=== PATIENT | male | born 1950 | race Caucasian/White ===

== ENCOUNTER 2018-04-11 13:36 | Outpatient (CLI) | payer MEDICARE, BC | END 2018-04-11 13:37 | disposition home or self-care (01) | LOC: BICULT 13:36 | PROVIDERS: ATTEND Internal Medicine Geriatric Medicine | DX: R53.1 Weakness (principal); R42 Dizziness and giddiness; R53.83 Other fatigue; R55 Syncope and collapse | CPT/HCPCS: 93880 ==

== ENCOUNTER 2019-03-25 11:24 | Outpatient (CLI) | payer MEDICARE, BC ==
--- NOTE | 2019-03-25 13:18 | RAD ---
LUMBAR SPINE: 03/24/19 Three views. Lateral views obtained in neutral, flexion and extension. INDICATIONS: Low back pain. There are mild to moderate degenerative changes. Disc narrowing seen at T12-L1 and L1-2. Loss of disc space at L5-S1. Mild to moderate spurring from anterior lumbar vertebrae. Moderate facet hypertrophy at L4-5 and L5-S1. There is a grade I anterolisthesis at L4-5 measured at 6 to 7 mm in neutral position. This measures 1 1 mm in flexion. IMPRESSION: Degenerative changes in the lumbar spine with anterolisthesis of L4-5 as described. POS: OFF
== END 2019-03-25 11:25 | disposition home or self-care (01) ==
LOC: TBSIIMAG 11:24
PROVIDERS: ATTEND Neurological Surgery
DX: M54.5 Low back pain (principal); M43.16 Spondylolisthesis, lumbar region; M47.816 Spondylosis without myelopathy or radiculopathy, lumbar region
CPT/HCPCS: 72100

== ENCOUNTER 2019-06-12 08:30 | Inpatient (IN) | payer MEDICARE, BC ==
--- NOTE | 2019-06-15 09:10 | HP ---
HISTORY OF PRESENT ILLNESS: This is a 68-year-old male, who reports to our office for evaluation of right-sided axial low back pain. The patient states that he has had pain for years, however, the last 6 months has progressively worse. The patient is worse when standing, a little better when sitting, but the best position is when he is in his recliner. The patient has seen different surgeon and wants to fuse his spine. The patient states he has been through physical therapy for approximately 6 weeks without much benefit. He has had injections with good results, but only for 2 hours. The patient is tender over the right SI joint. No change in sensation, has good strength bilaterally. REVIEW OF SYSTEMS: A 10-point review of systems has been completed and is negative other than stated above HPI. PAST MEDICAL HISTORY: Sleep apnea, hyperlipidemia, and claustrophobic. PAST SURGICAL HISTORY: Removal of a cyst on right wrist; ACL, left knee; torn rotator cuff repair; ganglion cyst removed on right thumb; torn meniscus repair; bilateral scopes; and a cyst removed on the left palm. FAMILY HISTORY: Father is , diagnosed with diabetes, hypertension, heart disease, stroke, and cancer. Mother alive, diagnosed with arthritis, osteoporosis, prediabetic, low blood count, diagnosed with hypertension. SOCIAL HISTORY: The patient is a nonsmoker. Uses alcohol on occasion and denies illicit drug. Lives with spouse. MEDICATIONS: 1. Centrum Silver. 2. Ocuvite. 3. Melatonin. 4. Aspirin 81 mg. 5. Pravastatin. 6. Fenofibrate. ALLERGIES: BACTRIM, DICLOFENAC, AND AUGMENTIN. PHYSICAL EXAMINATION: CONSTITUTIONAL: Well appearing, well nourished, alert. NEUROLOGIC: Awake, alert, and oriented x3. Cranial nerves are grossly intact. Lower extremities, 5/5 bilateral strength, hip flexion, knee flexion, knee extension, dorsiflexion, plantar flexion, EHL. There is no radiculopathy. Negative single leg raise bilaterally. Hip rotation normal bilaterally. Tender to palpate lumbar spine and right SI joint. Deep tendon reflexes 2+ patellar, 2+ Achilles bilaterally. Negative Babinski. No clonus. Sensory light touch intact. Gait and station, sit and stand normal. Normal gait. IMAGING STUDIES: MRI of L3-L4 lateral recess foraminal disease, moderate left L5-S1 foraminal narrowing. L4-L5 stenosis from listhesis, flexion-extension x-rays 3-mm motion at L4-L5 ASSESSMENT AND PLAN: Lumbar spinal stenosis and spondylolisthesis. Dr. Milligan has offered surgery, laminectomy, decompression L3-L4, L4-L5, L5-S1 with that transforaminal lumbar interbody fusion at L4-L5 for his instability. The patient states that he understands his risks and is willing to proceed. Job ID: [id number]
[2019-06-16] MEDS ORDERED: Clindamycin/D5W 900 mg/50 ml Premix Bag ONE (06:13)
[2019-06-16] MEDS ORDERED: Levofloxacin 500 mg/D5W 100 ml Premix Bag ONE (06:13)
[2019-06-16] MEDS ORDERED: Bupivacaine HCl 0.5%/Epinephrine 1:200,000/PF 30 ml Vial ONE (06:16)
[2019-06-16] MEDS ORDERED: Sodium Chloride 0.9% 30 ML ONE (06:17)
[2019-06-16] MEDS ORDERED: Thrombin 5000 UNITS/5 ML VIAL ONE (06:17)
[2019-06-16] MEDS ORDERED: Midazolam HCl 2 mg/2 ml Vial ONE (06:49)
[2019-06-16] MEDS ORDERED: Fentanyl 100 MCG/2 ML VIAL ONE ×4 (06:51→14:44)
[2019-06-16] MEDS ORDERED: Acetaminophen 650 MG Suppository PR PRN (12:17)
[2019-06-16] MEDS ORDERED: Milk Of Magnesia 30 ML UDCUP PO PRN (12:17)
[2019-06-16] MEDS ORDERED: Promethazine HCl 25 MG/ML VIAL IM PRN ×2 (12:17→12:41)
[2019-06-16] MEDS ORDERED: diphenhydrAMINE 25 MG CAP PO PRN (12:17)
[2019-06-16] MEDS ORDERED: Bisacodyl 10 MG SUPP PR PRN (12:17)
[2019-06-16] MEDS ORDERED: Mag-Al 1200 mg/1200 mg/30 ML UDCUP PO PRN (12:17)
[2019-06-16] MEDS ORDERED: diphenhydrAMINE 50 MG/ML VIAL IVP PRN (12:17)
[2019-06-16] MEDS ORDERED: Acetaminophen 325 MG TAB PO PRN (12:17)
[2019-06-16] MEDS ORDERED: Promethazine 25 MG TAB PO PRN (12:17)
[2019-06-16] MEDS ORDERED: Acetaminophen/Codeine 30-300mg Tablet PO PRN (12:17)
[2019-06-16] MEDS ORDERED: traMADol HCl 50 MG TAB PO PRN (12:17)
[2019-06-16] MEDS ORDERED: Ondansetron HCl/PF 4 MG/2 ML Vial IVP PRN (12:41)
[2019-06-16] MEDS ORDERED: Promethazine HCl 25 MG/ML VIAL SLOW IVP PRN (12:41)
[2019-06-16] MEDS ORDERED: Tamsulosin HCl 0.4 MG CAP ONE (13:09)
--- NOTE | 2019-06-16 13:30 | OP ---
DATE OF PROCEDURE: 06/16/2019 LEAD RIDER: Sadie Snow PA-C PREOPERATIVE INDICATION: Treat pain and prevent neurological deterioration. PREOPERATIVE DIAGNOSIS: Lateral recess stenosis with neurogenic claudication, L3-L4, L4-L5, and left L5-S1, and unstable spondylolisthesis, L4-L5. POSTOPERATIVE DIAGNOSES: Lateral recess stenosis with neurogenic claudication, L3-L4, L4-L5, and left L5-S1, and unstable spondylolisthesis, L4-L5. PROCEDURE PERFORMED: Decompressive laminectomy, medial facetectomy with foraminotomy, L3-L4, L4-L5, and left L5-S1; transforaminal lumbar interbody arthrodesis L4-L5, placement of intervertebral biomechanical device, L4-L5; pedicle screw and yonatan instrumentation, L4-L5; posterolateral arthrodesis, L4-L5; local morselized autograft, morselized allograft. PREOPERATIVE MEDICATIONS: Clindamycin 900 mg IV and Levaquin 500 mg IV. DRAIN NUMBER: Zero. DRAIN TYPE: None. DESCRIPTION OF PROCEDURE: The patient was brought to the operating room. General endotracheal anesthesia was induced. The patient was positioned prone on the Donnie frame with the appropriate padding for the chest and hips. A lateral fluoro radiograph was used to plan our incision. The lumbar skin was sterilely prepped and draped. We opened with a 10-blade knife, and we controlled bleeding with bipolar and monopolar cautery. We used monopolar cautery to dissect through subcutaneous tissues to the thoracodorsal fascia. We incised the fascia in the midline, and we reflected the paraspinal muscles off the spinous process and lamina of L3 to S1. A self-retaining retractor was placed. A lateral fluoro radiograph confirmed the levels upon, which we were operating. We then carried our dissection over the facet joints at L3-L4 and L4-L5 to identify the transverse processes of L4 and L5 bilaterally. We irrigated with bacitracin irrigation. Using an Adson rongeur, we removed the spinous process of L3, L4, L5 and the left side L5. We then used Kerrison rongeurs to fashion a laminectomy on the left at L5-S1 and down the midline from the bottom of L4 to the top of L3. We widened our laminectomy defect by performing medial facetectomies. We decompressed the lateral recess over the L3, L4, L5, and left S1 nerve roots. We made sure Cates ball probe could pass through the lateral recess and out the foramen with each of the nerve roots by performing foraminotomies. With our decompression secured, we turned our attention to arthrodesis. I performed a complete facetectomy on the right at L4-L5. This gave us access to the intervertebral space through the foramen. We incised the disk space and removed disk contents using curettes and rongeurs. We prepared the endplates for grafting with curettes. We used a rectangular bone rasp to measure the height of the interspace to 15 mm. A 15 mm PEEK intervertebral graft was brought into the field. This was loaded with demineralized bone matrix and morselized autograft. The autograft bone was obtained from our laminectomy bone, which cleaned of soft tissue attachments, morselized and added to demineralized bone matrix to form our fusion substrate. We advanced the PEEK interbody device into the L4-L5 interspace under radiographic guidance to the appropriate depth. We turned our attention to pedicle screw instrumentation. Using bony anatomic landmarks, palpation of the medial portion of the pedicles, and a lateral fluoro radiograph as our guide, we chose the entry points for pedicle screws. We drilled out the entry points and then used a bone awl to advance from the entry points through the pedicles into the vertebral bodies. We probed each trajectory and found him encased in bone. We then used a threaded tap to widen them and probing them, once again found them in the vertebral bodies. We then placed 6.5 mm diameter screws into the pedicles at L4 and L5 bilaterally. A 360-degree image set was generated with our isocentric C-arm confirming adequate position of our pedicle screw instrumentation. We then brought rods down into the screw heads and tightened caps over the rods. Before final tightening, we compressed across the interspace to keep our interbody device in place. We irrigated copiously with bacitracin irrigation. We decorticated the transverse processes of L4 and L5 bilaterally and over the decorticated bone. We left demineralized bone matrix and morselized autograft as our posterolateral fusion substrate. We infused local anesthetic in the paraspinal muscles. We irrigated the center of the wound once again. We closed in anatomical layers. We applied a sterile dressing. This was a clean case, no contamination. Job ID: [id number]
[2019-06-16] MEDS: Sodium Chloride 0.9% 1,000 ML IV SCH (15:27)
[2019-06-16] MEDS: Clindamycin/D5W 900 MG in Premix Bag 1 BAG IVPB SCH ×2 (15:28→20:24)
[2019-06-16 17:02] VITALS: BMI 30.5
[2019-06-16] MEDS: Acetaminophen/Codeine 30-300mg Tablet PO PRN (18:38)
[2019-06-16] MEDS: Ondansetron PF 4 MG/2 ML Vial IVP PRN (20:21)
[2019-06-16] MEDS: Fenofibrate Nanocrystallized 145 MG TAB PO SCH (20:31)
[2019-06-16] MEDS: Atorvastatin Calcium 10 MG TAB PO SCH (20:31)
[2019-06-16] MEDS: metFORMIN 500 MG TAB PO SCH (20:32)
[2019-06-16] MEDS ORDERED: Ondansetron PF 4 MG/2 ML Vial ONE (21:30)
[2019-06-16] MEDS ORDERED: PROPOFOL 200 MG/20 ML VIAL ONE (21:30)
[2019-06-16] MEDS ORDERED: Dexamethasone 20 MG/5 ML VIAL ONE (21:30)
[2019-06-16] MEDS ORDERED: Rocuronium Bromide 10 MG/ML (10ML VIAL) ONE (21:30)
[2019-06-16] MEDS ORDERED: Glycopyrrolate 0.2 MG/ML 5 ML SYRINGE ONE (21:30)
[2019-06-16] MEDS ORDERED: Ketorolac Tromethamine 30 MG/ML VIAL ONE (21:30)
[2019-06-16] MEDS ORDERED: PHENYLEPHRINE-NS 100 MCG/ML 10 ML SYRINGE ONE (21:30)
[2019-06-16] MEDS: Morphine 4 MG/ML VIAL SLOW IVP PRN (22:25)
[2019-06-17] MEDS: Morphine 2 MG/ML SYRINGE SLOW IVP PRN ×4 (01:55→20:07)
[2019-06-17] MEDS: Sodium Chloride 0.9% 1,000 ML IV SCH ×2 (01:59→15:20)
[2019-06-17] MEDS: Morphine 4 MG/ML VIAL SLOW IVP PRN ×2 (05:38→08:09)
[2019-06-17] MEDS: Ondansetron PF 4 MG/2 ML Vial IVP PRN ×2 (05:42→20:07)
[2019-06-17] MEDS ORDERED: Tamsulosin HCl 0.4 MG CAP PO PRN (06:00)
[2019-06-17] MEDS: metFORMIN 500 MG TAB PO SCH ×2 (08:02→20:16)
[2019-06-17] MEDS: Cyanocobalamin (Vitamin B-12) 1,000 MCG TAB PO SCH (08:03)
[2019-06-17] MEDS: Ubidecarenone 50 MG CAP PO SCH (08:03)
--- NOTE | 2019-06-17 09:49 | PRG ---
DATE OF SERVICE: 06/17/2019 I saw Bert Nguyễn in his hospital room this morning, 1 day out from lumbar decompression and L4-L5 fusion. No leg pain this morning, but his back is sore. He has gotten out of bed. His vitals looked stable. His neurological examination is intact. Our plan today is for Mr. Nguyễn to be fitted for a Chairback LSO to use the brace when he is out, to start his physical therapy, and towards independence for activities of daily living. Once he is eating, walking, going to the bathroom, and dressing himself, he can be discharged. This may happen tomorrow or in the late afternoon today. If bed is available in the 3rd floor, we will take it. Job ID: [id number]
[2019-06-17] MEDS ORDERED: Prevnar 13-Val Conj/PF 0.5 ML SYRINGE IM ONE (17:30)
[2019-06-17] MEDS: Fenofibrate Nanocrystallized 145 MG TAB PO SCH (20:16)
[2019-06-17] MEDS: Atorvastatin Calcium 10 MG TAB PO SCH (20:16)
[2019-06-17] MEDS: traMADol HCl 50 MG TAB PO PRN (23:24)
[2019-06-18] MEDS: Sodium Chloride 0.9% 1,000 ML IV SCH ×2 (03:49→17:16)
[2019-06-18] MEDS: tiZANidine HCl 4 MG TAB PO PRN ×2 (04:52→13:19)
--- NOTE | 2019-06-18 08:22 | PRG ---
DATE OF SERVICE: 06/18/2019 Mr. Nguyễn is 2 days out from lumbar decompression and fusion. He got up more than a few times yesterday. His brace is now in the room and he knows how to put it on and off. Overnight, vitals look stable. I do not find any new neurological deficit. Mr. Nguyễn can put the brace on standing. Once he is safe for activities of daily living, he can go home. If that requires another day in the hospital, then we will start the process of looking at inpatient rehabilitation, but I do not think it will be necessary. Job ID: [id number]
[2019-06-18] MEDS: Cyanocobalamin (Vitamin B-12) 1,000 MCG TAB PO SCH (08:48)
[2019-06-18] MEDS: Ubidecarenone 50 MG CAP PO SCH (08:48)
[2019-06-18] MEDS: metFORMIN 500 MG TAB PO SCH ×2 (08:50→19:28)
[2019-06-18] MEDS: Acetaminophen/Codeine 30-300mg Tablet PO PRN ×2 (09:51→15:34)
[2019-06-18] MEDS: Senokot S 8.6-50 MG TAB PO SCH ×2 (10:23→20:36)
[2019-06-18] MEDS: Atorvastatin Calcium 10 MG TAB PO SCH (19:27)
[2019-06-18] MEDS: Fenofibrate Nanocrystallized 145 MG TAB PO SCH (19:28)
[2019-06-18] MEDS: traMADol HCl 50 MG TAB PO PRN (20:36)
[2019-06-19] MEDS: traMADol HCl 50 MG TAB PO PRN (06:40)
[2019-06-19] MEDS: Sodium Chloride 0.9% 1,000 ML IV SCH (07:17)
--- NOTE | 2019-06-19 08:31 | PRG ---
DATE OF SERVICE: 06/19/2019 Mr. Nguyễn is 3 days out from lumbar decompression and fusion. He had a bit of a rough afternoon yesterday, but overnight and this morning he is feeling much better. He has already gone for 2 laps around the entire floor and waiting on breakfast and he is anticipating a discharge around lunchtime. His vitals are stable and his examination is reassuring. I anticipate discharge today. We went over wound care, activity restrictions, and followup. Job ID: [id number]
[2019-06-19] MEDS: Ubidecarenone 50 MG CAP PO SCH (09:20)
[2019-06-19] MEDS: Cyanocobalamin (Vitamin B-12) 1,000 MCG TAB PO SCH (09:20)
[2019-06-19] MEDS: Senokot S 8.6-50 MG TAB PO SCH (09:22)
[2019-06-19] MEDS: metFORMIN 500 MG TAB PO SCH (09:24)
[2019-06-19 11:57] VITALS: BP 138/77; TEMP 97.6
[2019-06-19] MEDS: tiZANidine HCl 4 MG TAB PO PRN (13:25)
== END 2019-06-19 13:40 | disposition home or self-care (01) | DRG 455 ==
LOC: SURG A 06-16 05:43 → T4-B 06-16 15:16 → SURG A 06-18 20:23
PROVIDERS: ADMIT Neurological Surgery; ATTEND Neurological Surgery
PROC: 0SG00AJ Fusion of Lumbar Vertebral Joint with Interbody Fusion Device, Posterior Approach, Anterior Column, Open Approach (ICD-10-PCS; principal; 2019-06-16)
PROC: 0SG0071 Fusion of Lumbar Vertebral Joint with Autologous Tissue Substitute, Posterior Approach, Posterior Column, Open Approach (ICD-10-PCS; 2019-06-16)
PROC: 0SB20ZZ Excision of Lumbar Vertebral Disc, Open Approach (ICD-10-PCS; 2019-06-16)
PROC: 01NB0ZZ Release Lumbar Nerve, Open Approach (ICD-10-PCS; 2019-06-16)
DX: M48.062 Spinal stenosis, lumbar region with neurogenic claudication (principal); M43.16 Spondylolisthesis, lumbar region; G47.00 Insomnia, unspecified; E11.9 Type 2 diabetes mellitus without complications; E78.5 Hyperlipidemia, unspecified; Z98.890 Other specified postprocedural states; Z79.84 Long term (current) use of oral hypoglycemic drugs; Z79.899 Other long term (current) drug therapy; Z88.8 Allergy status to other drugs, medicaments and biological substances
CPT/HCPCS: 76000; 85027; 85610; 85730; C1713; C1768; J0670; J1100; J1885; J1956; J2250; J2270; J2405; J2550; J2704; J3010; J3370; J3490

== ENCOUNTER 2019-06-15 06:00 | Outpatient (CLI) | payer MEDICARE, BC ==
[2019-06-15 10:48] LABS: Hemoglobin 13.3 g/dL (14.0-18.0); Mean Corpuscular HGB CONC 33.6 g/dL (32.0-36.0); Mean Corpuscular Hemoglobin 31.2 pg (27.0-31.0); Mean Corpuscular Volume 92.9 fL (78.0-98.0); Mean Platelet Volume 10.2 fL (7.4-10.4); Platelet Count 177 thou/uL (130-400); RBC Distribution Width 11.9 % (11.5-14.5); Red Blood Cell (RBC) Count 4.26 mill/uL (4.70-6.10); White Blood Cell (WBC) Count 6.7 thou/uL (4.8-10.8)
[2019-06-15 10:55] LABS: Prothrombin Time 13.3 SEC (12.0-14.7)
[2019-06-15 10:56] LABS: PTT 31.3 SEC (22.9-36.1)
== END 2019-06-15 06:01 | disposition home or self-care (01) ==
LOC: LABBT 06:00
PROVIDERS: ATTEND Neurological Surgery
DX: Z01.812 Encounter for preprocedural laboratory examination (principal); M43.16 Spondylolisthesis, lumbar region
CPT/HCPCS: 85027; 85610; 85730

== ENCOUNTER 2019-08-02 17:35 | Emergency (ER) | payer MEDICARE, BC ==
[2019-08-02] MEDS ORDERED: CEFAZOLIN 1 GM VIAL ONE (17:47)
[2019-08-02] MEDS ORDERED: Sodium Chloride 0.9% 100 ML ONE (17:47)
[2019-08-02] MEDS ORDERED: Lidocaine 1% 20 ML MDV ONE (17:47)
--- NOTE | 2019-08-02 18:22 | RAD ---
Exam: XR Foot Rt 3 View STANDARD HISTORY: Trauma to right foot. Injury to great toe after dropping a object on the toe. Patient has a laceratio n overlying the base of the right great. COMPARISON: None FINDINGS: There is a mildly comminuted fracture involving the right great toe which involves the midportion and distal aspect of the right great toe including fracture of the tuft of the distal phalanx great toe. This fracture is just beneath the nailbed, and an open fracture cannot be excluded. No additional fracture or dislocation is seen. There is osteoarthritis involving the first metatarsal -phalangeal joint. Tiny plantar calcaneal enthesophyte is seen. IMPRESSION: Comminuted fracture involving the distal phalanx right great toe. Portion of the fracture is beneath the nailbed, and an open fracture cannot be excluded based on this exam.
[2019-08-02] MEDS ORDERED: Bacitracin 1 PK ONE (19:07)
== END 2019-08-02 19:43 | disposition home or self-care (01) ==
LOC: SCSER 17:35
DX: S92.421B Displaced fracture of distal phalanx of right great toe, initial encounter for open fracture (principal); E78.5 Hyperlipidemia, unspecified; E78.00 Pure hypercholesterolemia, unspecified; Z79.84 Long term (current) use of oral hypoglycemic drugs; Z79.82 Long term (current) use of aspirin; Z79.899 Other long term (current) drug therapy; W20.8XXA Other cause of strike by thrown, projected or falling object, initial encounter
CPT/HCPCS: 12002; 96365; 96375; J0690; J2001; J2270; J3490

== ENCOUNTER 2019-08-11 13:24 | Outpatient (CLI) | payer MEDICARE, BC ==
--- NOTE | 2019-08-11 14:09 | RAD ---
XR Lumbar Spine 2 Or 3 View History: M [age] low back pain Comparison: Radiograph March 2019 Findings: New posterior spinal fusion hardware and discectomy change at L4-5 with decrease anterolist hesis of L4 over L5, now minimal. There is 2 mm L3 over L4 retrolisthesis. Mild degenerative disc space height loss at L1-2 and L2-3 as well as posteriorly at L3-4. Moderate degenerative disc space height loss at L5/S1. Impression: Satisfactory postoperative appearance with decreased listhesis of L4/L5.
== END 2019-08-11 13:25 | disposition home or self-care (01) ==
LOC: TBSIIMAG 13:24
PROVIDERS: ATTEND Neurological Surgery
DX: M54.5 Low back pain (principal); M43.16 Spondylolisthesis, lumbar region; Z98.890 Other specified postprocedural states
CPT/HCPCS: 72100

== ENCOUNTER 2020-08-04 06:45 | Outpatient (CLI) | payer MEDICARE, BC ==
[2020-08-04 13:56] LABS: #Eosinphils 0.1 10x3/uL (0.0-0.5); #Monocytes 0.6 10x3/uL (0.0-1.1); #Neutrophils 4.1 10x3/uL (1.5-8.4); %Basophils 0.6 % (0.0-2.0); %Eosinophils 1.9 % (0.0-6.0); %Lymphocytes 26.5 % (18.0-47.0); %Monocytes 9.6 % (0.0-10.0); %Neutrophils 61.1 % (40.0-75.0); Hemoglobin 14.2 g/dL (14.0-18.0); Mean Corpuscular HGB CONC 33.2 G/DL (32.0-36.0); Mean Corpuscular Volume 93.4 fl (80.0-100.0); Mean Platelet Volume 12.6 fl (7.4-10.4); Platelet Count 217 10x3/uL (130-400); RBC Distribution Width 11.4 % (11.5-14.5); Red Blood Cell (RBC) Count 4.58 10x6/uL (4.40-5.80); White Blood Cell (WBC) Count 6.7 10x3/uL (4.5-11.0)
[2020-08-04 14:13] LABS: Prothrombin Time 10.5 sec (9.5-12.1)
[2020-08-04 14:14] LABS: Anion Gap 15 mmol/L (10-20); BUN (Urea Nitrogen) 21 mg/dL (8.4-25.7); Calc. Creatinine Clearance 0 mL/min (70-130); Carbon Dioxide 21 mmol/L (23-31); Chloride 109 mmol/L (98-107); Estimated GFR-MDRD 69; Glucose 180 mg/dL (80-115); Potassium 4.5 mmol/L (3.5-5.1); Sodium 140 mmol/L (136-145)
[2020-08-04 22:58] LABS: SARS-CoV-2 MS2 Positive; SARS-CoV-2 N Gene Negative; SARS-CoV-2 S Gene Negative; SARS-CoV-2 by NAA Not Detected (NotDetected); SARS-CoV-2 orf1ab Negative
--- NOTE | 2020-08-09 06:54 | EKG ---
Test Reason : Blood Pressure : / mmHG Vent. Rate : 064 BPM Atrial Rate : 064 BPM P-R Int : 148 ms QRS Dur : 116 ms QT Int : 398 ms P-R-T Axes : 026 -29 018 degrees QTc Int : 410 ms Normal sinus rhythm Right bundle branch block Abnormal ECG No previous ECGs available Confirmed by STEVEN WYLIE MD ([id number]) on 08/09/2020 6:53:55 AM Referred By: BERENICE Confirmed By:STEVEN WYLIE MD
== END 2020-08-04 06:46 | disposition home or self-care (01) ==
LOC: LABBT 06:45
PROVIDERS: ATTEND Orthopaedic Surgery
DX: Z01.818 Encounter for other preprocedural examination (principal); Z20.828 Contact with and (suspected) exposure to other viral communicable diseases
CPT/HCPCS: 80048; 85025; 85610; 87081; 93005; U0003; 87635; 93010

== ENCOUNTER 2020-08-04 11:30 | Inpatient (IN) | payer MEDICARE, BC ==
[2020-08-08 10:37] VITALS: BMI 28.8
[2020-08-09] MEDS ORDERED: Lidocaine 1% (PF) 30 ML VIAL ONE (06:26)
[2020-08-09] MEDS ORDERED: Fentanyl 100 MCG/2 ML VIAL ONE ×5 (06:26→12:08)
[2020-08-09] MEDS ORDERED: Midazolam HCl 2 mg/2 ml Vial ONE ×2 (06:26→06:31)
[2020-08-09] MEDS ORDERED: Levofloxacin 500 mg/D5W 100 ml Premix Bag ONE (06:30)
[2020-08-09] MEDS ORDERED: Vancomycin 1.5 GRAM/300 ML BAG ONE (06:30)
[2020-08-09] MEDS ORDERED: Tranexamic Acid 1,000 MG/10 ML VIAL ONE (06:30)
[2020-08-09] MEDS ORDERED: Sodium Chloride 0.9% 100 ML ONE (06:30)
[2020-08-09] MEDS ORDERED: diphenhydrAMINE 25 MG CAP PO PRN (06:57)
[2020-08-09] MEDS ORDERED: Zolpidem Tartrate 5 MG TAB PO PRN ×2 (06:57→07:30)
[2020-08-09] MEDS ORDERED: Promethazine HCl 25 MG/ML VIAL IM PRN ×3 (06:57→08:39)
[2020-08-09] MEDS ORDERED: HYDROcodone/Acetaminophen 10/325 mg Tablet PO PRN ×3 (06:57→07:30)
[2020-08-09] MEDS ORDERED: Ondansetron PF 4 MG/2 ML Vial IVP PRN ×2 (06:57→07:30)
[2020-08-09] MEDS ORDERED: Fentanyl 100 MCG/2 ML VIAL IV PRN (07:23)
[2020-08-09] MEDS ORDERED: Ropivacaine HCl/PF 250 ML in Premix Bag 1 BAG NERVE BLCK SCH (07:30)
[2020-08-09] MEDS ORDERED: traMADol HCl 50 MG TAB PO PRN ×2 (07:30)
[2020-08-09] MEDS ORDERED: Ondansetron HCl/PF 4 MG/2 ML Vial IVP PRN (08:39)
[2020-08-09] MEDS ORDERED: HYDROmorphone 2 MG/ML VIAL SLOW IVP PRN (08:39)
[2020-08-09] MEDS ORDERED: Promethazine HCl 25 MG/ML VIAL SLOW IVP PRN (08:39)
[2020-08-09] MEDS ORDERED: PACU-Morphine 4MG/ML VIAL SLOW IVP PRN (08:39)
[2020-08-09] MEDS ORDERED: Aspirin 81 mg Enteric Coated Tablet PO SCH ×2 (09:00→21:00)
[2020-08-09] MEDS ORDERED: Ferrous Gluconate 324 MG TAB PO SCH (09:00)
[2020-08-09] MEDS ORDERED: Non-Formulary Item 1 EACH (Cholecalciferol (Vitamin D3) [Vitamin D3] 2,000 UNIT Capsule) PO SCH ×2 (09:00)
[2020-08-09] MEDS ORDERED: FERROUS SULFATE DRIED 159 MG PO SCH (09:00)
[2020-08-09] MEDS ORDERED: Multivitamin W/ Minerals 1 TAB PO SCH (09:00)
[2020-08-09] MEDS ORDERED: Non-Formulary Item 1 EACH (Cyanocobalamin (Vitamin B-12) [Vitamin B12] 2,500 MCG Tablet) PO SCH (09:00)
[2020-08-09] MEDS ORDERED: Non-Formulary Item 1 EACH (Multivitamin [Multivitamins] 1 CAP Capsule) PO SCH (09:00)
[2020-08-09] MEDS ORDERED: UBIDECARENONE 100 MG PO SCH (09:00)
[2020-08-09] MEDS ORDERED: HYDROmorphone 2 MG/ML VIAL ONE (09:10)
--- NOTE | 2020-08-09 09:53 | OP ---
DATE OF PROCEDURE: 08/09/2020 TITLE OF PROCEDURE: Left total knee arthroplasty using Inman Triathlon 5 femur, 5 tibia, 9-mm CS X3 polyethylene, and A35 patella. OFFICE SYSTEMS TECHNOLOGY INSTRUCTOR: Elizabeth Granados PA-C BLOOD LOSS: Minimal. SPECIMEN: None. DRAINS: None. COMPLICATION: None. DESCRIPTION OF PROCEDURE: After appropriate consent was obtained, the patient was taken to the operating room, where spinal anesthesia was induced. The patient received Ancef prior to beginning the surgical procedure. The left leg was placed in the tourniquet and prepped and draped in the usual sterile fashion. After exsanguination, the tourniquet was inflated to 300 mmHg. A longitudinal incision was made over the patella, hemostasis was obtained and dissection was carried down to the retinaculum. The medial parapatellar arthrotomy was performed and the patella was then everted and the knee was flexed. The meniscus tissue was excised. The intramedullary canal was opened with a drill. The distal femoral cutting guide was keyed off the intramedullary guide. The distal femoral cut was made with the oscillating saw after appropriate alignment had been confirmed. The #2 guide was then used to drill holes in the distal femur for placement of further guides. The femur was sized and found to be that the 5 was the most appropriate size. The anterior chamfer and posterior cut were made, followed by the posterior chamber and anterior cut. The 5 femoral trial was placed on the femur and showed good fit. The femoral trial was then removed and attention was then turned to the tibia, where the 3:1 tibial guide was placed. This was aligned using the drill bit along with the malleoli. A 4 mm cut was keyed off the medial side of the tibia. The proximal tibial cutting guide was affixed to bone using drill pins. The Cobra retractors were used to protect the contents of the popliteal canal and an oscillating saw was used to resect the proximal. The tibia was sized and found the 5 was the most appropriate size. A trial reduction was performed, which showed good mediolateral stability and full extension with the 9-mm plastic spacer. The patella was everted and the oscillating saw was used to cut the patella. The osteophytes were removed as needed. The patella was sized and the A32 was found to be the most appropriate size. The patella was then drilled and the A32 patellar button trial was placed on the patella. The knee was put through a range of motion and there was no need for a lateral release. There was good tracking of the patella. After this was complete, the patella trial was removed. The femur was drilled and the proximal tibia was punched with the cruciate chisel. Copious irrigation was then performed over all bone ends. The bones were meticulously dried and free of debris. Tobramycin treated cement was then used to cement in the 5 tibia with a 9-mm spacer, the 5 femur and all-plastic patella. After cement had cured, care was taken to make sure that all extraneous cement had been removed. Copious irrigation was performed again using irrigant and pulsatile lavage. The tracking was checked once again and tracking was appropriate. The Josseline drain was placed in the knee. The retinaculum was repaired using #1 Vicryl. The subcutaneous tissues were closed with 2-0 Vicryl and the skin was closed with tayo. A sterile dressing was applied. The drain was connected and the patient was placed in a knee immobilizer. There were no complications. The editorial assistant/co-surgeon was present through the entire procedure and was responsible for providing exposure, tissue retraction and any necessary limb or tissue manipulation required to obtain necessary reduction or hardware placement. The editorial assistant/co-surgeon also provided bleeding control, tissue closure, and suturing in conjunction with the primary surgeon. Job ID: [id number]
[2020-08-09] MEDS ORDERED: Ondansetron PF 4 MG/2 ML Vial ONE (09:54)
[2020-08-09] MEDS ORDERED: ePHEDrine 50 MG/ML VIAL ONE (09:54)
[2020-08-09] MEDS ORDERED: Bupivacaine HCl 0.5%/Epinephrine 1:200,000/PF 30 ml Vial ONE (09:54)
[2020-08-09] MEDS ORDERED: Ropivacaine 0.2% HCl/PF (40 MG/20 ML VIAL) ONE (09:54)
[2020-08-09] MEDS ORDERED: PROPOFOL 200 MG/20 ML VIAL ONE (09:54)
[2020-08-09] MEDS ORDERED: Lidocaine 1% PF 5 ML VIAL ONE (09:54)
--- NOTE | 2020-08-09 10:31 | RAD ---
LEFT KNEE 2 VIEWS: Date: 08/09/2020 HISTORY: Postop total knee replacement. FINDINGS/IMPRESSION: Postop changes are noted. Knee prosthesis is noted. Components appear in adequate position and alignm ent. POS: AGW
[2020-08-09] MEDS ORDERED: Ketorolac Tromethamine 30 MG/ML VIAL IVP SCH (14:00)
[2020-08-09] MEDS ORDERED: Dextrose 50% Abboject 50 ML SYRINGE SLOW IVP PRN (16:08)
[2020-08-09] MEDS ORDERED: Dextrose 5% in Water 1,000 ML IV PRN (16:08)
[2020-08-09] MEDS ORDERED: HumaLOG 300 UNITS/3 ML VIAL SC PRN ×2 (16:08)
[2020-08-09] MEDS ORDERED: Vancomycin HCl 1.5 GM in Sodium Chloride 0.9% 250 ML 300 ML IVPB SCH (18:00)
[2020-08-09] MEDS ORDERED: Vancomycin 1.5 GRAM/300 ML BAG 1.5 GM in Premix Bag 1 BAG IVPB SCH (18:00)
[2020-08-09] MEDS: Ketorolac Tromethamine 30 MG/ML VIAL IVP SCH ×3 (18:31→23:42)
[2020-08-09] MEDS: Sodium Chloride 0.9% 1,000 ML IV SCH ×2 (18:32)
[2020-08-09] MEDS: metFORMIN XR 500 MG TAB PO SCH (18:34)
[2020-08-09] MEDS: Cholecalciferol 1,000 UNITS (25 MCG) TAB PO SCH (18:41)
[2020-08-09] MEDS: Ferrous Sulfate 325 MG TAB PO SCH (18:41)
[2020-08-09] MEDS: Cyanocobalamin (Vitamin B-12) 1,000 MCG TAB PO SCH (18:41)
[2020-08-09] MEDS: Ubidecarenone 50 MG CAP PO SCH (18:42)
[2020-08-09] MEDS: Multivit, Therapeutic 1 TAB PO SCH (18:42)
[2020-08-09] MEDS: Senokot S 8.6-50 MG TAB PO SCH ×2 (18:42→20:59)
--- NOTE | 2020-08-09 20:48 | CON ---
DATE OF CONSULTATION: PRIMARY CARE PHYSICIAN: Dr. Giovany Arango. CHIEF COMPLAINT: Presented for total knee replacement. HISTORY OF PRESENT ILLNESS: The patient is a 69-year-old male with past medical history significant for sleep apnea, high cholesterol, kidney stones, hypertriglyceridemia, iron-deficiency anemia, and type 2 diabetes. We are completing a medical management consultation after his total knee replacement today. The patient was cleared by Cardiology prior to surgery. He states that his diabetes is well controlled and he is actually considered a prediabetic. The patient also states that he is compliant with his medications and he does not have any concerning factors right now. He does not have any concerns when asked. PAST MEDICAL HISTORY: Sleep apnea, high cholesterol, claustrophobia, spondylolisthesis, iron-deficiency anemia, BPH, type 2 diabetes, osteoarthritis. PAST SURGICAL HISTORY: ACL, left knee; torn rotator cuff. ALLERGIES: AMOXICILLIN, AUGMENTIN, DICLOFENAC, SULFAMETHOXAZOLE, AND TRIMETHOPRIM. MEDICATIONS: 1. Aspirin 81 mg two tablets at night. 2. Iron 65 mg daily. 3. Vitamin D3 at 2000 units daily. 4. Tylenol PM 2 tabs at night. 5. Pravachol 1 tab every night. 6. Multivitamin one tab daily. 7. Melatonin 20 mg at night. 8. Fenofibrate 80 mg at night. 9. Vitamin B12 at 1000 mcg daily. 10. Metformin 500 mg once a day. 11. CoQ10 at 100 mg daily. SOCIAL HISTORY: The patient lives at home with his . He denies alcohol, drug, or tobacco use. FAMILY HISTORY: Noncontributory to this day. REVIEW OF SYSTEMS: All other review of systems negative unless noted in HPI. PHYSICAL EXAMINATION: VITAL SIGNS: Temperature 99.5, pulse 74, respiratory rate 16, O2 saturation 95% on room air, blood pressure 150/73. GENERAL: Well developed, well nourished, in no acute distress. HEENT: Head is atraumatic, normocephalic. NECK: Supple. RESPIRATORY: Clear to auscultation bilaterally. No rhonchi, no wheezes, no rales. CARDIOVASCULAR: Regular rate and rhythm. No rubs, no murmurs, no gallops. ABDOMEN: Soft, nontender, and nondistended. EXTREMITIES: No cyanosis, no edema. Left knee wrapped post surgery. PSYCHIATRIC: Normal affect. Normal behavior. LABORATORY AND IMAGING: EKG shows sinus rhythm, 64 beats per minute. Lab work was completed on 08/04/2020. White blood cell 6.7, hemoglobin 14.2, hematocrit 42.8, PT 10.5, INR 1. Sodium 140, potassium 4.5, chloride 109, CO2 of 21, creatinine 1.06, GFR 69, glucose 180. Negative COVID swab. IMPRESSION AND PLAN: The patient is seen for medical management consultation status post total knee replacement. He has a history of diabetes, which we will follow with Accu-Cheks before meals and at bedtime, mild sliding scale. We will continue him on his home medications. He also has a history of high cholesterol. We will continue him on his regular medications. We will continue to monitor his blood levels as he does have a history of iron-deficiency anemia. We will continue him on his iron while in the hospital. The patient wishes to be a full code. His surrogate decision maker is his . Thank you for allowing us to participate in this consultation. We will follow throughout his hospitalization. Job ID: [id number]
[2020-08-09] MEDS: Acetaminophen 500 MG TAB PO SCH (20:53)
[2020-08-09] MEDS: Atorvastatin Calcium 10 MG TAB PO SCH (20:55)
[2020-08-09] MEDS: Aspirin 81 mg Enteric Coated Tablet PO SCH (20:55)
[2020-08-09] MEDS: Fenofibrate Nanocrystallized 145 MG TAB PO SCH (20:56)
[2020-08-09] MEDS: Melatonin 3 MG TAB PO SCH (20:57)
[2020-08-09] MEDS: diphenhydrAMINE 25 MG CAP PO SCH (20:59)
[2020-08-09] MEDS ORDERED: Non-Formulary Item 1 EACH (Fenofibrate [Fenofibrate] 160 MG Tablet) PO SCH (21:00)
[2020-08-09] MEDS ORDERED: Non-Formulary Item 1 EACH (Melatonin [Melatonin] 10 MG Tablet) PO SCH (21:00)
[2020-08-09] MEDS ORDERED: metFORMIN XR 500 MG TAB PO SCH (21:00)
[2020-08-09] MEDS ORDERED: Pravastatin Sodium 40 MG TAB PO SCH (21:00)
[2020-08-10] MEDS: Sodium Chloride 0.9% 1,000 ML IV SCH ×2 (04:18→15:33)
[2020-08-10] MEDS: Ketorolac Tromethamine 30 MG/ML VIAL IVP SCH ×4 (05:43→23:08)
[2020-08-10] MEDS: Acetaminophen 325 MG TAB PO PRN (05:43)
[2020-08-10 05:59] LABS: #Eosinphils 0.1 thou/uL (0.0-0.7); #Lymphocytes 1.2 thou/uL (1.20-3.40); #Monocytes 1.5 thou/uL (0.11-0.59); #Neutrophils 7.2 thou/uL (1.40-6.50); %Basophils 0.4 % (0.0-1.0); %Eosinophils 0.7 % (0.0-10.0); %Monocytes 14.5 % (0.0-10.0); %Neutrophils 72.3 % (42.0-75.0); Hemoglobin 10.9 g/dL (14.0-18.0); Mean Corpuscular HGB CONC 32.7 g/dL (32.0-36.0); Mean Corpuscular Hemoglobin 31.2 pg (27.0-31.0); Mean Corpuscular Volume 95.3 fL (78.0-98.0); Mean Platelet Volume 10.2 fL (7.4-10.4); Platelet Count 147 thou/uL (130-400); RBC Distribution Width 10.9 % (11.5-14.5)
[2020-08-10 06:17] LABS: Anion Gap 11 mmol/L (10-20); BUN (Urea Nitrogen) 12 mg/dL (8.4-25.7); Calc. Creatinine Clearance 99 mL/min (70-130); Calcium 8.6 mg/dL (7.8-10.44); Carbon Dioxide 24 mmol/L (23-31); Chloride 108 mmol/L (98-107); Estimated GFR-MDRD 86; Glucose 126 mg/dL (80-115); Potassium 4.2 mmol/L (3.5-5.1); Sodium 139 mmol/L (136-145)
[2020-08-10] MEDS: Ubidecarenone 50 MG CAP PO SCH (08:47)
[2020-08-10] MEDS: Senokot S 8.6-50 MG TAB PO SCH ×2 (08:48→20:13)
[2020-08-10] MEDS: Multivit, Therapeutic 1 TAB PO SCH (08:48)
[2020-08-10] MEDS: Cyanocobalamin (Vitamin B-12) 1,000 MCG TAB PO SCH (08:48)
[2020-08-10] MEDS: Ferrous Sulfate 325 MG TAB PO SCH (08:49)
[2020-08-10] MEDS: Cholecalciferol 1,000 UNITS (25 MCG) TAB PO SCH (08:49)
[2020-08-10] MEDS: HYDROcodone/Acetaminophen 10/325 mg Tablet PO PRN (09:54)
--- NOTE | 2020-08-10 10:22 | PDOC.HOSPP ---
- Subjective Encounter Date: 08/10/20 Encounter Time: 09:10 Subjective: Patient is seen for follow-up today for medical management of type 2 diabetes, iron deficiency anemia, and hyperlipidemia. He states he had a good night and is ready to work with therapy today. He states his pain is well controlled well. He has been passing gas and had a small bowel movement this morning. - Objective Vital Signs & Weight: Vital Signs (12 hours) Temp Pulse Resp BP Pulse Ox 08/10/20 07:00 97.8 F 78 14 143/76 H 92 L 08/10/20 03:17 98.2 F 77 16 127/68 92 L 08/09/20 23:27 98.5 F 80 16 135/70 93 L Weight Weight 195 lb I&O: 08/09/20 08/10/20 08/11/20 06:59 06:59 06:59 Intake Total 1600 Output Total 1500 Balance 100 Result Diagrams: 08/10/20 05:11 08/10/20 05:10 Additional Labs: Accuchecks 08/10/20 08/09/20 08/09/20 05:43 20:38 17:27 POC Glucose 140 H 133 H 187 H Hospitalist ROS - Medication Medications: Active Medications Generic Name Dose Route Start Last Admin Trade Name Freq PRN Reason Stop Dose Admin Acetaminophen 650 mg 08/09/20 06:57 08/10/20 05:43 Acetaminophen 325 Mg Tab PO 650 mg Q4H PRN Administration Headache/Fever or Pain Acetaminophen 1,000 mg 08/09/20 21:00 08/09/20 20:53 Acetaminophen 500 Mg Tab PO 1,000 mg HS PARESH Administration Hydrocodone Bitart/Acetaminophen 2 tab 08/09/20 07:30 08/10/20 09:54 Hydrocodone/Acetaminophen 10/325 Mg Tablet PO 2 tab Q4H PRN Administration PAIN (4-6) Aspirin 162 mg 08/09/20 21:00 08/09/20 20:55 Aspirin 81 Mg Enteric Coated Tablet PO 162 mg HS PARESH Administration Atorvastatin Calcium 10 mg 08/09/20 21:00 08/09/20 20:55 Atorvastatin Calcium 10 Mg Tab PO 10 mg HS PARESH Administration Cholecalciferol 2,000 units 08/09/20 09:00 08/10/20 08:49 Cholecalciferol 1,000 Units (25 Mcg) Tab PO 2,000 units DAILY PARESH Administration Coenzyme Q10 100 mg 08/09/20 09:00 08/10/20 08:47 Ubidecarenone 50 Mg Cap PO 100 mg DAILY PARESH Administration Cyanocobalamin 1,000 mcg 08/09/20 09:00 08/10/20 08:48 Cyanocobalamin (Vitamin B-12) 1,000 Mcg Tab PO 1,000 mcg DAILY PARESH Administration Diphenhydramine HCl 50 mg 08/09/20 21:00 08/09/20 20:59 Diphenhydramine 25 Mg Cap PO Not Given HS PARESH Fenofibrate 72.5 mg 08/09/20 21:00 08/09/20 20:56 Fenofibrate Nanocrystallized 145 Mg Tab PO 72.5 mg HS PARESH Administration Ferrous Sulfate 325 mg 08/09/20 09:00 08/10/20 08:49 Ferrous Sulfate 325 Mg Tab PO Not Given DAILY PARESH Sodium Chloride 1,000 mls @ 100 mls/hr 08/09/20 07:00 08/10/20 04:18 Normal Saline 0.9% IV Not Given .Q10H PARESH Ropivacaine 250 ml/ Device 250 mls @ 0 mls/hr 08/09/20 07:30 08/10/20 09:46 NERVE BLCK 08/11/20 07:31 250 mls INF PARESH Administration As Directed Ketorolac Tromethamine 15 mg 08/09/20 12:00 08/10/20 05:43 Ketorolac Tromethamine 30 Mg/Ml Vial IVP 08/11/20 06:01 15 mg Q6HR PARESH Administration Melatonin 18 mg 08/09/20 21:00 08/09/20 20:57 Melatonin 3 Mg Tab PO 18 mg HS PARESH Administration Metformin HCl 500 mg 08/09/20 21:00 08/09/20 18:34 Metformin Xr 500 Mg Tab PO 500 mg HS PARESH Administration Multivitamins 1 tab 08/09/20 09:00 08/10/20 08:48 Multivit, Therapeutic 1 Tab PO 1 tab DAILY PARESH Administration Senna/Docusate Sodium 2 tab 08/09/20 09:00 08/10/20 08:48 Senokot S 8.6-50 Mg Tab PO 2 tab BID PARESH Administration Tramadol HCl 100 mg 08/09/20 07:30 08/09/20 16:24 Tramadol Hcl 50 Mg Tab PO 100 mg Q6H PRN Administration Moderate Pain 4-6 - Exam General Appearance: NAD, awake alert Heart: RRR, no murmur, no gallops, no rubs, normal peripheral pulses Respiratory: CTAB, no wheezes, no rales, no ronchi, normal chest expansion Gastrointestinal: soft, non-tender, non-distended, normal bowel sounds Extremities: no edema Psychiatric: normal affect, normal behavior Hosp A/P - Plan Continue monitoring Accu-Cheks AC at bedtime 1 mild sliding scale insulin Blood sugars have been running from 126-140 this morning Continue monitoring vital signs every 4 hours Patient feeling well today
[2020-08-10] MEDS ORDERED: Ropivacaine 0.2% 550 ML 550 ML NERVE BLCK SCH (12:15)
[2020-08-10] MEDS: Acetaminophen 500 MG TAB PO SCH (20:11)
[2020-08-10] MEDS: Atorvastatin Calcium 10 MG TAB PO SCH (20:12)
[2020-08-10] MEDS: Aspirin 81 mg Enteric Coated Tablet PO SCH (20:12)
[2020-08-10] MEDS: Fenofibrate Nanocrystallized 145 MG TAB PO SCH (20:13)
[2020-08-10] MEDS: metFORMIN XR 500 MG TAB PO SCH (20:13)
[2020-08-10] MEDS: Melatonin 3 MG TAB PO SCH (20:14)
[2020-08-10] MEDS: diphenhydrAMINE 25 MG CAP PO SCH (20:15)
[2020-08-11 05:21] LABS: #Eosinphils 0.1 thou/uL (0.0-0.7); #Monocytes 1.3 thou/uL (0.11-0.59); %Basophils 0.2 % (0.0-1.0); %Eosinophils 0.7 % (0.0-10.0); %Lymphocytes 10.7 % (21.0-51.0); %Monocytes 14.2 % (0.0-10.0); %Neutrophils 74.2 % (42.0-75.0); Hemoglobin 10.6 g/dL (14.0-18.0); Mean Corpuscular HGB CONC 31.8 g/dL (32.0-36.0); Mean Corpuscular Hemoglobin 30.4 pg (27.0-31.0); Mean Corpuscular Volume 95.7 fL (78.0-98.0); Mean Platelet Volume 10.3 fL (7.4-10.4); Platelet Count 154 thou/uL (130-400); RBC Distribution Width 10.8 % (11.5-14.5); White Blood Cell (WBC) Count 9.4 thou/uL (4.8-10.8)
[2020-08-11 05:35] LABS: Anion Gap 12 mmol/L (10-20); BUN (Urea Nitrogen) 12 mg/dL (8.4-25.7); Calc. Creatinine Clearance 95 mL/min (70-130); Calcium 9.2 mg/dL (7.8-10.44); Carbon Dioxide 23 mmol/L (23-31); Chloride 108 mmol/L (98-107); Estimated GFR-MDRD 82; Glucose 131 mg/dL (80-115); Potassium 3.8 mmol/L (3.5-5.1); Sodium 139 mmol/L (136-145)
[2020-08-11] MEDS: Ketorolac Tromethamine 30 MG/ML VIAL IVP SCH (05:42)
[2020-08-11] MEDS: Acetaminophen 325 MG TAB PO PRN (05:46)
[2020-08-11 07:33] VITALS: BP 148/72
[2020-08-11] MEDS: Ubidecarenone 50 MG CAP PO SCH (08:30)
[2020-08-11] MEDS: Senokot S 8.6-50 MG TAB PO SCH (08:30)
[2020-08-11] MEDS: Cyanocobalamin (Vitamin B-12) 1,000 MCG TAB PO SCH (08:30)
[2020-08-11] MEDS: Ferrous Sulfate 325 MG TAB PO SCH (08:30)
[2020-08-11] MEDS: Multivit, Therapeutic 1 TAB PO SCH (08:30)
[2020-08-11] MEDS: Cholecalciferol 1,000 UNITS (25 MCG) TAB PO SCH (08:30)
[2020-08-11 12:22] VITALS: TEMP 98.2
[2020-08-11] MEDS: HYDROcodone/Acetaminophen 10/325 mg Tablet PO PRN (12:33)
== END 2020-08-11 13:20 | disposition home or self-care (01) | DRG 470 ==
LOC: SJJU 08-09 05:35 → SURG A 08-09 14:11
PROVIDERS: ADMIT Orthopaedic Surgery; ATTEND Orthopaedic Surgery
PROC: 0SRD0J9 Replacement of Left Knee Joint with Synthetic Substitute, Cemented, Open Approach (ICD-10-PCS; principal; 2020-08-09)
DX: M17.12 Unilateral primary osteoarthritis, left knee (principal); G47.33 Obstructive sleep apnea (adult) (pediatric); E78.00 Pure hypercholesterolemia, unspecified; N40.0 Benign prostatic hyperplasia without lower urinary tract symptoms; E11.9 Type 2 diabetes mellitus without complications; E78.2 Mixed hyperlipidemia; E78.1 Pure hyperglyceridemia; D50.9 Iron deficiency anemia, unspecified; Z88.1 Allergy status to other antibiotic agents; Z88.2 Allergy status to sulfonamides; Z88.8 Allergy status to other drugs, medicaments and biological substances; Z98.1 Arthrodesis status; Z79.84 Long term (current) use of oral hypoglycemic drugs; Z79.82 Long term (current) use of aspirin; Z79.899 Other long term (current) drug therapy; Z87.442 Personal history of urinary calculi
CPT/HCPCS: 36415; 36416; 80048; 85025; A4306; C1713; C1776; J1170; J1885; J1956; J2001; J2250; J2405; J2704; J2795; J3010; J3370; J3490

== ENCOUNTER 2021-01-23 09:06 | Outpatient (CLI) | payer MEDICARE, BC | END 2021-01-23 09:07 | disposition home or self-care (01) | LOC: BICULT 09:06 | PROVIDERS: ATTEND Urology | DX: N20.0 Calculus of kidney (principal) | CPT/HCPCS: 74018; 76770 ==

== ENCOUNTER 2022-02-21 14:59 | Outpatient (CLI) | payer MEDICARE, BC | END 2022-02-21 15:00 | disposition home or self-care (01) | LOC: TBSIIMAG 14:59 | PROVIDERS: ATTEND Neurological Surgery | DX: M47.26 Other spondylosis with radiculopathy, lumbar region (principal); Z98.890 Other specified postprocedural states | CPT/HCPCS: 72120 ==

== ENCOUNTER 2022-11-06 07:21 | Outpatient (CLI) | payer MEDICARE ==
[2022-11-06] MEDS ORDERED: Iopamidol-370 76% 500 ML 1 ML ONE (09:35)
== END 2022-11-06 07:22 | disposition home or self-care (01) ==
LOC: BICCT 07:21
PROVIDERS: ATTEND Urology
DX: N40.1 Benign prostatic hyperplasia with lower urinary tract symptoms (principal); R31.9 Hematuria, unspecified; N20.1 Calculus of ureter
CPT/HCPCS: 74178

== ENCOUNTER 2022-11-06 12:37 | Outpatient (CLI) | payer MEDICARE ==
[2022-11-06 13:34] LABS: PTT 25.9 sec (22.0-33.0); Prothrombin Time 10.8 sec (9.5-12.1)
[2022-11-06 13:36] LABS: Anion Gap 13 mmol/L (10-20); BUN (Urea Nitrogen) 18 mg/dL (8.4-25.7); Calc. Creatinine Clearance 0 mL/min (70-130); Calcium 10.4 mg/dL (7.8-10.44); Carbon Dioxide 23 mmol/L (23-31); Chloride 110 mmol/L (98-107); Estimated GFR 83; Glucose 108 mg/dL (83-110); Potassium 4.8 mmol/L (3.5-5.1); Sodium 141 mmol/L (136-145)
[2022-11-06 13:46] LABS: Hemoglobin 13.2 g/dL (13.5-17.5); Mean Corpuscular HGB CONC 32.8 g/dL (32.0-36.0); Mean Corpuscular Hemoglobin 30.8 pg (27.0-33.0); Mean Corpuscular Volume 93.9 fl (81.2-95.1); Mean Platelet Volume 12.2 fl (7.4-10.4); Platelet Count 213 10x3/uL (150-450); RBC Distribution Width 11.9 % (11.5-14.5); Red Blood Cell (RBC) Count 4.29 10x6/uL (4.32-5.72); White Blood Cell (WBC) Count 7.6 10x3/uL (3.5-10.5)
== END 2022-11-06 12:38 | disposition home or self-care (01) ==
LOC: LABBT 12:37
PROVIDERS: ATTEND Urology
DX: Z01.818 Encounter for other preprocedural examination (principal); N20.0 Calculus of kidney
CPT/HCPCS: 74178; 80048; 81001; 85027; 85610; 85730; 87086; 93005; 93010; Q9967

== ENCOUNTER 2022-11-07 08:57 | Day surgery (SDC) | payer MEDICARE ==
[2022-11-06 12:49] VITALS: BMI 30.4
[2022-11-07] MEDS ORDERED: Levofloxacin 500 mg/D5W 100 ml Premix Bag ONE (11:34)
[2022-11-07] MEDS ORDERED: Fentanyl 100 MCG/2 ML VIAL ONE ×2 (11:35→12:58)
[2022-11-07] MEDS ORDERED: Rocuronium Bromide 10 MG/ML (10ML VIAL) ONE (11:44)
[2022-11-07] MEDS ORDERED: Ketorolac Tromethamine 30 MG/ML VIAL ONE (11:44)
[2022-11-07] MEDS ORDERED: Glycopyrrolate 0.2 MG/ML 5 ML SYRINGE ONE (11:44)
[2022-11-07] MEDS ORDERED: Ondansetron PF 4 MG/2 ML Vial ONE (11:44)
[2022-11-07] MEDS ORDERED: NEOSTIGMINE 3 MG/3 ML SYR 3 MG/3 ML SYRINGE ONE (11:44)
[2022-11-07] MEDS ORDERED: Lidocaine 1% PF 5 ML VIAL ONE (11:44)
[2022-11-07] MEDS ORDERED: PROPOFOL 200 MG/20 ML VIAL ONE (11:44)
[2022-11-07] MEDS ORDERED: Phenazopyridine HCl 100 MG TAB ONE (12:53)
[2022-11-07] MEDS ORDERED: Oxybutynin 5 MG TAB ONE (12:53)
[2022-11-07] MEDS ORDERED: Iopamidol 15 ML ONE (14:12)
[2022-11-07] MEDS ORDERED: HYDROcodone/Acetaminophen 5/325 mg Tablet ONE (14:40)
== END 2022-11-07 16:25 | disposition home or self-care (01) ==
LOC: SDC 08:57
PROVIDERS: ATTEND Urology
PROC: 0TC78ZZ Extirpation of Matter from Left Ureter, Via Natural or Artificial Opening Endoscopic (ICD-10-PCS; principal; 2022-11-07)
PROC: 0T778DZ Dilation of Left Ureter with Intraluminal Device, Via Natural or Artificial Opening Endoscopic (ICD-10-PCS; 2022-11-07)
DX: N13.2 Hydronephrosis with renal and ureteral calculous obstruction (principal); N35.912 Unspecified bulbous urethral stricture, male; N40.1 Benign prostatic hyperplasia with lower urinary tract symptoms; R35.1 Nocturia; G47.30 Sleep apnea, unspecified; E78.1 Pure hyperglyceridemia; E11.9 Type 2 diabetes mellitus without complications; E66.9 Obesity, unspecified; Z68.30 Body mass index [BMI] 30.0-30.9, adult; Z87.891 Personal history of nicotine dependence; Z79.82 Long term (current) use of aspirin; Z79.84 Long term (current) use of oral hypoglycemic drugs; Z79.899 Other long term (current) drug therapy; Z88.0 Allergy status to penicillin; Z88.2 Allergy status to sulfonamides; Z88.6 Allergy status to analgesic agent
CPT/HCPCS: 74018; 74420; C1769; C2617; J1885; J1956; J2405; J2704; J3010; Q9967

== ENCOUNTER 2022-12-27 08:24 | Outpatient (CLI) | payer MEDICARE | END 2022-12-27 08:25 | disposition home or self-care (01) | LOC: ULT 08:24 | PROVIDERS: ATTEND Urology | DX: N20.0 Calculus of kidney (principal) | CPT/HCPCS: 76770 ==

== ENCOUNTER 2023-03-29 07:42 | Outpatient (CLI) | payer MEDICARE ==
[2023-03-29 08:34] LABS: Bilirubin Neg (Negative); Blood, Urine Negative (Negative); Glucose, Urine (Dipstick) Normal (Negative); Ketone, Urine Negative (Negative); Leukocyte Negative (Negative); Nitrite Negative (Negative); Protein, Urine (Dipstick) Negative (Neg-Trace); Specific Gravity, Urine 1.015 (1.005-1.030); Urobilinogen Normal mg/dL (Less than 2)
[2023-03-29 08:36] LABS: Clarity Clear (Clear)
[2023-03-29 08:38] LABS: Hemoglobin 12.9 g/dL (13.5-17.5); Mean Corpuscular HGB CONC 32.7 g/dL (32.0-36.0); Mean Corpuscular Hemoglobin 31.1 pg (27.0-33.0); Mean Corpuscular Volume 94.9 fl (81.2-95.1); Mean Platelet Volume 11.6 fl (7.4-10.4); Platelet Count 210 10x3/uL (150-450); RBC Distribution Width 12.3 % (11.5-14.5); Red Blood Cell (RBC) Count 4.15 10x6/uL (4.32-5.72); White Blood Cell (WBC) Count 6.8 10x3/uL (3.5-10.5)
[2023-03-29 08:40] LABS: PTT 26.3 sec (22.0-33.0); Prothrombin Time 10.9 sec (9.5-12.1)
[2023-03-29 08:44] LABS: Anion Gap 12 mmol/L (10-20); BUN (Urea Nitrogen) 16 mg/dL (8.4-25.7); Calc. Creatinine Clearance 0 mL/min (70-130); Calcium 10.2 mg/dL (7.8-10.44); Carbon Dioxide 24 mmol/L (23-31); Chloride 110 mmol/L (98-107); Estimated GFR 82; Glucose 123 mg/dL (83-110); Potassium 4.6 mmol/L (3.5-5.1); RBC/HPF 0-3 HPF (0-3); Sodium 141 mmol/L (136-145); WBC/HPF None Seen HPF (0-3)
[2023-03-29 08:45] LABS: Bacteria/HPF Rare-Few HPF (None Seen)
== END 2023-03-29 07:43 | disposition home or self-care (01) ==
LOC: LABBT 07:42
PROVIDERS: ATTEND Urology
DX: Z01.812 Encounter for preprocedural laboratory examination (principal); Z12.5 Encounter for screening for malignant neoplasm of prostate; E11.49 Type 2 diabetes mellitus with other diabetic neurological complication; N40.1 Benign prostatic hyperplasia with lower urinary tract symptoms; N20.0 Calculus of kidney; E66.9 Obesity, unspecified; R35.1 Nocturia; R81 Glycosuria; N35.916 Unspecified urethral stricture, male, overlapping sites; F41.8 Other specified anxiety disorders; Z80.42 Family history of malignant neoplasm of prostate; R82.998 Other abnormal findings in urine
CPT/HCPCS: 80048; 81001; 85027; 85610; 85730; 87086

== ENCOUNTER 2023-11-08 12:58 | Outpatient (CLI) | payer MEDICARE | END 2023-11-08 12:59 | disposition home or self-care (01) | LOC: DTY/OP 12:58 | PROVIDERS: ATTEND Family Medicine | DX: E11.49 Type 2 diabetes mellitus with other diabetic neurological complication (principal) | CPT/HCPCS: 97802 ==

== ENCOUNTER 2024-11-03 14:57 | Outpatient (CLI) | payer MEDICARE | END 2024-11-03 14:58 | disposition home or self-care (01) | LOC: ULT 14:57 | PROVIDERS: ATTEND Orthopaedic Surgery | DX: M79.604 Pain in right leg (principal) ==